=== PATIENT | female | born 1955 | race Asian ===

== ENCOUNTER 2020-10-02 10:38 | Outpatient (CLI) | payer MEDICARE, SELFPAY ==
--- NOTE | ~2020-10-02 | XR_ITS ---
EXAMINATION: XR knee RT min 4V EXAM DATE: 10/02/2020 11:14 INDICATION: No known recent injury provided at this time. Pain of the right knee. TECHNIQUE: Right knee lateral, frontal AP, frontal PA tunnel, sunrise projections. There is no prior study for comparison. FINDINGS: No evidence osteochondral defect or joint body in the right knee joint. No joint effusio n. There is moderate patellofemoral, mild tibiofemoral compartment primary osteoarthritis. There are no acute fractures or dislocations identified. There is no subcutaneous gas. The soft tissue is unr emarkable. There are no radiopaque foreign bodies. IMPRESSION: Right knee osteoarthritis, moderate at patellofemoral compartment. Reviewed, dictated and finalized at location B. ERY PATTERNMAKER
--- NOTE | ~2020-10-02 | XR_ITS ---
EXAMINATION: XR knee LT min 4V EXAM DATE: 10/02/2020 11:14 INDICATION: No known recent injury provided at this time. Pain of the left knee. TECHNIQUE: Left knee lateral, frontal AP, frontal PA tunnel, sunrise projections. Correlation is made to contralateral knee same date. FINDINGS: No evidence osteochondral defect or joint body in the left knee joint. There is moderate patellofemoral, mild tibiofemoral primary osteoarthritis. Small patellar spurs. No joint effusion. T here are no acute fractures or dislocations identified. There is no subcutaneous gas. The soft tiss ue is unremarkable. There are no radiopaque foreign bodies. IMPRESSION: Left knee osteoarthritis, moderate at patellofemoral compartment. Reviewed, dictated and finalized at location B. T CLEANER
== END 2020-10-02 10:39 | disposition home or self-care (01) ==
PROVIDERS: PCP Family Medicine; Visit Provider Family Medicine
DX: M25.561 Pain in right knee (principal); M25.562 Pain in left knee; M17.0 Bilateral primary osteoarthritis of knee
CPT/HCPCS: 73564

== ENCOUNTER 2021-08-09 09:10 | Outpatient (CLI) | payer MEDICARE, SELFPAY ==
--- NOTE | ~2021-08-09 | MM_ITS ---
EXAMINATION: MM screening jose armando BI w mary jo HISTORY: Screening TECHNIQUE: Craniocaudal and mediolateral oblique 3-D tomosynthesis images were obtained and synthetic 2-D images were generated. CAD analysis was submitted and interpreted. COMPARISON: Comparison to multiple prior studies sequentially, with oldest reviewed study dated 10/28. BREAST PARENCHYMAL COMPOSITION: There are scattered areas of fibroglandular density. FINDINGS: There are developing bilateral breast masses in the lower inner quadrant of the left breast and lower inner quadrant of the right breast. There are scattered benign-appearing bilateral breast calcifications. IMPRESSION: 1. Developing bilateral breast masses. 2. Additional mammographic views and possible breast ultrasound are recommended. BI-RADS Category 0: Incomplete: Needs additional imaging evaluation. Reviewed, dictated and finalized at location A. IMPRESSION: 1. Developing bilateral breast masses. 2. Additional mammographic views and possible breast ultrasound are recommended . BI-RADS Category 0: Incomplete: Needs additional imaging evaluation.
--- NOTE | ~2021-08-09 | XR_ITS ---
EXAMINATION: XR knee RT min 4V DATE: 08/09/2021 10:05 INDICATION: Right knee pain TECHNIQUE: Four views of the right knee were obtained. COMPARISON: 10/02/2020 FINDINGS: Alignment is normal. No fracture or osteochondral lesion. There is severe joint space narro wing in the lateral patellofemoral compartment. Mild to moderate joint space narrowing is seen throug hout the remainder of the No joint effusion/synovitis. Soft tissues are unremarkable. IMPRESSION: 1. Tricompartmental osteoarthritis, severe in the lateral patellofemoral compartment. Reviewed, dictated and finalized at location A. IMPRESSION: 1. Tricompartmental osteoarthritis, severe in the lateral patellofemoral compar tment.
== END 2021-08-09 09:11 | disposition home or self-care (01) ==
PROVIDERS: PCP Family Medicine; Visit Provider Family Medicine
DX: Z12.31 Encounter for screening mammogram for malignant neoplasm of breast (principal); M25.561 Pain in right knee; R92.8 Other abnormal and inconclusive findings on diagnostic imaging of breast; M17.11 Unilateral primary osteoarthritis, right knee
CPT/HCPCS: 73564; 77063; 77067

== ENCOUNTER 2021-09-07 11:24 | Outpatient (CLI) | payer MEDICARE, SELFPAY ==
--- NOTE | ~2021-09-07 | MMUS_ITS ---
EXAMINATION: MM diagnostic jose armando BI w mary jo, US breast LT limited HISTORY: Bilateral breast masses. TECHNIQUE: Additional 3-D tomosynthesis images of the breasts were performed and synthetic 2-D images were generated. CAD analysis was submitted and interpreted. High resolution limited left breast ultr asound was performed. COMPARISON: Comparison to multiple prior studies sequentially, with oldest reviewed study dated 10/28. BREAST PARENCHYMAL COMPOSITION: Breast composed of scattered areas of fibroglandular density. FINDINGS: MAMMOGRAPHIC FINDINGS: There is stable focal asymmetries posteriorly in the right breast which are not significantly changed dating back to 09/29/2016 allowing for technique. There are developing masses clustered in the lower central aspect. Both masses appear to contain layering milk of calcium on medial lateral views. ULTRASOUND: Limited left breast ultrasound: At 6:00, 2 cm from the nipple, there is a slightly irregular shaped 1 .6 cm cystic mass with posterior acoustic enhancement and some angular margins. No internal vasculari ty. At 7:00, 2 cm from the nipple, there is an oval hypoechoic mass with parallel orientation measuri ng 1 cm maximum dimension, likely a complicated cyst. At 7:00 near the nipple there is an oval hypoec hoic 3 mm mass, likely complicated cysts. IMPRESSION: 1. Probable benign cystic masses of the left breast. 2. Recommend 6 month follow-up diagnostic left mammogram and ultrasound. BI-RADS category 3, probably benign findings. Reviewed, dictated and finalized at location A. IMPRESSION: 1. Probable benign cystic masses of the left breast. 2. Recommend 6 month follow-up diagnostic left mammogram and ultrasound. BI-RADS category 3, probably benign findings.
== END 2021-09-07 11:25 | disposition home or self-care (01) ==
LOC: ANHIMG 11:25
PROVIDERS: PCP Family Medicine; Visit Provider Family Medicine
DX: R92.8 Other abnormal and inconclusive findings on diagnostic imaging of breast (principal); N60.02 Solitary cyst of left breast; N63.42 Unspecified lump in left breast, subareolar
CPT/HCPCS: 76642; 77062; 77066; G0279

== ENCOUNTER 2022-03-24 13:55 | Outpatient (CLI) | payer MEDICARE, SELFPAY ==
--- NOTE | ~2022-03-24 | MMUS_ITS ---
EXAMINATION: MM diagnostic jose armando LT w mary jo, US breast LT limited HISTORY: Follow-up left breast masses TECHNIQUE: Additional 3-D tomosynthesis images of the left breast were performed and synthetic 2-D im ages were generated. CAD analysis was submitted and interpreted. High resolution Limited left breast ultrasound was performed. COMPARISON: Comparison to multiple prior studies sequentially, with oldest reviewed study dated 01/2016. BREAST PARENCHYMAL COMPOSITION: Breast composed of scattered areas of fibroglandular density FINDINGS: MAMMOGRAPHIC FINDINGS: There are 2 separate masses in the lower inner quadrant of the left breast posteriorly. There are no suspicious calcifications or architectural distortion. ULTRASOUND: Limited left breast ultrasound: Adjacent to one another are 2 separate hypoechoic masses at the 6 and 7:00 position of the left breast, 2 cm from the nipple measuring up to 1.4 and 1.0 cm respectively. Each of these masses has some angular margins with low-level internal echoes and no significant poste rior features. There is parallel orientation. IMPRESSION: 1. Solid masses located at the 6 and 7:00 positions of the left breast. 2. Ultrasound-guided left breast biopsies recommended. BI-RADS category 4, suspicious findings. Reviewed, dictated and finalized at location A. IMPRESSION: 1. Solid masses located at the 6 and 7:00 positions of the left breast. 2. Ultrasound-guided left breast biopsies recommended. BI-RADS category 4, suspicious findings.
== END 2022-03-24 13:56 | disposition home or self-care (01) ==
LOC: ANHIMG 13:56
PROVIDERS: PCP Family Medicine; Visit Provider Family Medicine
DX: N63.25 Unspecified lump in the left breast, overlapping quadrants (principal)
CPT/HCPCS: 76642; 77061; 77065; G0279

== ENCOUNTER 2023-03-27 11:23 | Outpatient (CLI) | payer MEDICARE, SELFPAY ==
--- NOTE | ~2023-03-27 | MMUS_ITS ---
EXAMINATION: MM diagnostic jose armando BI w mary jo, US breast LT limited HISTORY: Follow-up for indeterminate left breast masses for which biopsy was previously recommended. TECHNIQUE: Craniocaudal, mediolateral, and mediolateral oblique 3-D tomosynthesis images of the fran ts were performed and synthetic 2-D images were generated. CAD analysis was submitted and interpreted . High resolution limited left breast ultrasound was performed. COMPARISON: 03/24/2022, 09/07/2021, 08/09/2021 BREAST PARENCHYMAL COMPOSITION: There are scattered areas of fibroglandular density. FINDINGS: MAMMOGRAPHIC FINDINGS: Left breast: There are adjacent masses in the posterior third lower inner left breast which measure 1 2 mm and 8 mm and demonstrate slow decrease in size compared to recent mammograms. There has been no suspicious interval change. Right breast: No suspicious mass, calcification, or architectural distortion are identified to sugges t malignancy. There has been no suspicious interval change. ULTRASOUND: There is a 12 mm x 10 mm oval, circumscribed, parallel, hypoechoic mass with no posterior features or internal vascularity at the 6:00 location 2 cm from the nipple with decrease in size. An 8 mm x 5 mm mass with similar sonographic features is present at the 7:00 location 2 cm from the nipple, also wi th interval decrease in size. IMPRESSION: 1. Left breast masses with decrease in size, consistent with benign findings. 2. Recommend routine screening mammography in one year. BI-RADS Category 2: Benign finding(s). Reviewed, dictated and finalized at location A. IMPRESSION: 1. Left breast masses with decrease in size, consistent with benign findings. 2. Recommend routine screening mammography in one year. BI-RADS Category 2: Benign finding(s).
== END 2023-03-27 11:24 | disposition home or self-care (01) ==
LOC: ANHIMG 11:24
PROVIDERS: PCP Family Medicine; Visit Provider Family Medicine
DX: R92.8 Other abnormal and inconclusive findings on diagnostic imaging of breast (principal)
CPT/HCPCS: 76642; 77062; 77066; G0279

== ENCOUNTER 2025-08-14 10:46 | Outpatient (CLI) | payer MEDICARE, SELFPAY ==
--- NOTE | ~2025-08-14 | MM_ITS ---
EXAMINATION: MM screening jose armando BI w mary jo HISTORY: Screening TECHNIQUE: Craniocaudal and mediolateral oblique 3-D tomosynthesis images were obtained and synthetic 2-D images were generated. CAD analysis was submitted and interpreted. COMPARISON: 03/27/2023 BREAST PARENCHYMAL COMPOSITION: There are scattered areas of fibroglandular density. FINDINGS: There is no evidence of suspicious mass, calcification, or architectural distortion to suggest malignancy. There has been no suspicious interval change. IMPRESSION: 1. No mammographic evidence of malignancy. Recommend routine screening mammography in one year. BI-RADS Category 2: Benign finding(s) Reviewed, dictated and finalized at location Q. IMPRESSION: 1. No mammographic evidence of malignancy. Recommend routine screening mammogra phy in one year. BI-RADS Category 2: Benign finding(s)
--- OUTSIDE RECORDS SUMMARY | 2025-08-14 11:27 | XMS_ITS | Clinical Summary ---
Author Organization [facility] Address [address] [place] [address] Care Team Providers Care Legal Recovery Specialist Name Role Phone Unavailable Primary Care Provider Unavailabl e Allergies No known active allergies Medications cholecalciferol (cholecalciferol ) 400 unit capsule take 1 (400UNITS) by oral route every day 0 0 07/07/2016 Active calcium carbonate (CALCIUM 500) 1,250 MG (500 mg of elemental calcium) tablet 0 0 07/07/2016 Active cholecalciferol (VITAMIN D3) 400 unit capsule take 1 by Oral route every day 0 0 04/05/2016 Active aspirin (ASPIR-81) 81 mg tablet take 1 tablet by oral route every day 0 0 04/05/2016 Active multivitamin-iro n-folic acid (CENTRUM COMPLETE) 18-400 mg-mcg tablet take 1 tablet by oral route every day with food 0 0 04/05/2016 Active atorvastatin (LIPITOR) 40 mg tablet Take 40 mg by mouth daily Active hydroCHLOROthiaz lisa (HYDRODIURIL) 25 mg tablet Take 1 tablet (25 mg total) by mouth daily 90 tablet 02/07/2019 Active magnesium oxide (MAG-OX) 400 mg (241.3 mg elemental magnesium) tablet Take 1 tablet (400 mg total) by mouth daily 60 tablet 4 02/07/2019 Active dilTIAZem (CARDIZEM) 60 mg tablet TAKE 1 TABLET(60 MG) BY MOUTH THREE TIMES DAILY 270 tablet 05/16/2019 Active carvedilol (COREG) 3.125 mg tablet TAKE 1 TABLET(3.12 5 MG) BY MOUTH TWICE DAILY WITH MEALS 180 tablet 05/17/2019 Active losartan (COZAAR) 25 mg tablet TAKE 1 TABLET(25 MG) BY MOUTH DAILY 90 tablet 07/16/2019 Active Active Problems Problem Noted Date Diagnosed Date Sick sinus syndrome 09/29/2016 Overview (03/03/2017): Sick sinus syndrome Paroxysmal atrial fibrillation 04/05/2016 Overview (03/03/2017): PAF (paroxysmal atrial fibrillation) Sleep apnea 11/06/2014 Overview (03/03/2017): Sleep apnea Hypertension 11/06/2014 Overview (03/03/2017): HTN - Hypertension Immunizations Immunization Administration Dates Next Due Influenza, Quadrivalent, Spl it, Preservative Free, Intradermal 08/29/2016 Influenza, Trivalent, Recomb inant, Egg Free, Preservative Free, Antibiotic Free, IM (FLUBLOK) 11/06/2014 Medical History Medical History Date Comments Hx Other Medical sleep apnea; Co mments: ATG 11/06/2014 - Hypertension Hypertension Hx Other Medical DVT; Comments: [facility] 03/22/2016 - Hx Other Medical peripheral neur opathy; Comments: [facility] 03/22/2016 - Family History Medical History Relation Name Comments Hypertension Father 2 Hypertension; C ause of : Hypertension Diabetes type II Mother 2 Diabetes me llitus type 2; Cause of : Diabetes mellitus type 2 Relation Name Status Comments Father 1 Father 2 Mother 1 Mother 2 Social History Tobacco Use Types Packs/Day Years Used Date Smoking Tobacco: Never Alcohol Use Standard Drinks/Week Comments No 0 (1 standard drink = 0.6 oz pur e alcohol) Comments Unknown Sex and Gender Information Value Date Recorded Sex Assigned at Not on file Legal Sex Female 8:29 PM [employer] Gender Identity Not on file Sexual Orientation Not on file Obstetrics History Last Filed Vital Signs Vital Sign Reading Time Taken Comments Blood Pressure 144/78 02/07/2019 9:23 AM CDT Pulse 72 02/07/2019 9:23 AM CDT Temperature 36.8 C (98.3 F) 02/07/2019 9:23 AM CDT Respiratory Rate 16 02/07/2019 9:23 AM CDT Oxygen Saturation 98% 01/30/2017 2:49 PM [employer] Inhaled Oxygen Concentration - - Weight 93 kg (205 lb) 02/07/2019 9:23 AM CDT Height 165.1 cm (5' 5) 02/07/2019 9:23 AM CDT Body Mass Index 34.11 02/07/2019 9:23 AM CDT Plan of Treatment Not on file Insurance [facility] MDCR HMO REF
== END 2025-08-14 10:47 | disposition home or self-care (01) ==
PROVIDERS: PCP Internal Medicine; Visit Provider Internal Medicine
DX: Z12.31 Encounter for screening mammogram for malignant neoplasm of breast (principal)
CPT/HCPCS: 77063; 77067

== ENCOUNTER 2025-09-11 15:10 | Outpatient (CLI) | payer MEDICARE, SELFPAY ==
--- NOTE | ~2025-09-11 | DEXA_ITS ---
Bone Density Report Name: ROSALIND PEDROZA Age: 69 Sex: Female Ethnicity: White Date of : 1955 Indication: postmenopausal; screening for osteoporosis; height loss; Referring Provider: RAPHAEL, TASHI Mercado Study: Bone densitometry was performed. Exam Date: September 11, 2025 Accession number: [id number] Bone Density: Region BMD T-score Z-score Classification AP Spine(L1-L4) 1.092 0.4 2.6 Normal Femoral Neck (Left) 0.830 -0.2 1.7 Normal Total Hip (Left) 0.895 -0.4 1.2 Normal Femoral Neck (Right) 0.962 1.0 2.9 Normal Total Hip (Right) 0.861 -0.7 0.9 Normal Total Hip Mean 0.878 -0.6 1.1 Normal World Health Organization criteria for BMD impression classify patients as: Normal (T-score at or above -1.0), Osteopenia (T-score between -1.0 and -2.5), or Osteoporosis (T-score at or below -2.5). 10-year Fracture Risk: FRAX not reported because: All T-scores for Spine Total, Hip Total, Femoral Neck at or above -1.0 Clinical Information Provided by Patient: Has used the following medications: Vitamin D, Calcium Patient maximum height was 65 Menopause Age: 52 No regular weight bearing exercise Drinks caffeinated beverages Onset of menses at age 12 Number of children 5 Impression: The patient has normal bone mass. Discussion: BONE DENSITY IS ABOVE THE MINIMUM DESIRABLE LEVEL AT ALL SKELETAL SITES TESTED. This patient?s bone mineral density is above the minimum desirable level (T-score -1.0 or better) at all sites measured. The patient should follow a healthful lifestyle (good nutrition with adequate calcium and vitamin D, and appropriate weight-bearing exercise). Follow-Up: Consider repeating this study in 5 years or sooner if there is some new clinical indication. Reported by: HARDEEP on 09/11/2025 3:49:00 PM. Reviewed, dictated and finalized at location A.
== END 2025-09-11 15:11 | disposition home or self-care (01) ==
PROVIDERS: PCP Internal Medicine; Visit Provider Internal Medicine
DX: Z78.0 Asymptomatic menopausal state (principal)
CPT/HCPCS: 77080

== ENCOUNTER 2025-09-14 18:31 | Emergency (ER) | payer MEDICARE, SELFPAY ==
[2025-09-14 18:40] VITALS: BP 149/74; PULSE 80; RESP 16; TEMP 36.3; O2SAT 100
--- NOTE | 2025-09-14 18:54 | ED_ITS ---
HPI - Nausea/Vomiting/Diarrhea General Chief complaint: Nausea/Vomiting/Diarrhea Stated complaint: Diarrhea, weak, drowsy, sleeping long hours Time Seen by Provider: 09/14/25 18:35 Source: patient Mode of arrival: ambulatory Limitations: no limitations History of Present Illness HPI Narrative: Patient is a 69-year-old female who presents with diarrhea for 1 week. Patient states last 2 days has been solid again. However since diarrhea started patient has not eaten much and only been drinking water. Patient has had increase fatigue and generalized weakness. Denies any fever, chills, nausea, vomiting. Patient has been taking Imodium, pantoprazole, Tums, famotidine and probiotic Related Data Allergies Allergy/AdvReac Type Severity Reaction Status Date / Time No Known Allergies Allergy Unknown Verified 09/14/25 18:37 Review of Systems Review of Systems: All systems reviewed & are unremarkable except as noted in HPI and below Constitutional: Constitutional: Denies body ache(s), Denies chills, Reports fatigue, Denies fever(s), Denies headache(s), Denies malaise and Denies weakness Eyes: Eyes: Denies blurry vision, Denies irritation and Denies loss of vision ENT: Denies otalgia, Denies headache(s), Denies nasal discharge, Denies sinus pain and Denies sore throat Cardiovascular: Cardiovascular: Denies chest pain, Denies irregular heart rhythm and Denies dyspnea Respiratory: Respiratory: Denies dyspnea Gastrointestinal: Gastrointestinal: Denies abdominal pain, Denies melena, Denies hematochezia, Reports diarrhea, Denies nausea and Denies vomiting Musculoskeletal: Musculoskeletal: Denies back pain, Denies myalgias and Denies arthralgias Integumentary/Breasts: Skin/Breast: Denies pruritus and Denies rash Neurologic: Denies headache(s), Denies loss of vision and Denies weakness Psychiatric: Psychiatric: Reports no additional psychiatric complaints Endocrine: Endocrine: Denies fatigue PMFSH Family History Family History Sibling Hypertension Social History Social History Smoking status: Never smoker Alcohol intake: never Comments At time of signature, agree with nursing past medical, surgical, social and fam federico history. There is no relevant family history pertinent to the presenting complaint. Exam Const: General: cooperative, healthy appearing, comfortable, no acute distress and well nourished Nutritional Appearance: well nourished Orientation/consciousness: patient oriented x3 Limitations: no limitations HENMT: Head: normal to inspection, normocephalic and atraumatic Ears: hearing grossly normal bilaterally and external ears normal Face/Nose/Sinus: Normal external nose present, normal facial exam and face symmetric Face and sinus: normal facial exam and face symmetric Mouth: Yes lip normal Eyes: General: appearance normal, both eyes and all related structures Alignment and Position: alignment normal and position normal Periorbital: periorbital findings normal Eyelids: eyelids normal Pupils: Equal, round and reactive pupils present EOM: EOMs intact bilaterally Neck: Neck: normal visual inspection, full ROM and supple Chest: Chest palpation & inspection: normal inspection of the chest Resp: Effort & Inspection: normal respiratory effort and able to speak in complete sentences Auscultation: clear to auscultation bilaterally Cardio: Rate: regular rate Rhythm: regular rhythm Heart sounds: S1 normal heart sound present and S2 normal heart sound present GI: Inspection: normal to inspection GI Palp: No abdominal tenderness Skin: General skin exam: normal color and no rashes or lesions noted Neuro: General: patient oriented x3 and moves all extremities Cranial nerves: Yes Equal, round and reactive pupils present Speech: normal speech Gait exam (Neuro): Normal gait present Extrem: General: normal to inspection, full ROM and no edema Psych: Appearance: grossly normal and well kempt Mental Status: mental status grossly normal Speech and movement: Normal speech and movement present Affect: normal affect Attitude: cooperative Thought process: Normal thought process present Course Course Emergency Course: Patient is aware of diagnosis, understands and agrees to treatment plan. Anticipatory guidance given. Patient agrees to follow-up as directed and is aware of reasons to seek care at the emergency department. Portions of this record may have been created with voice recognition software Level of Care: Express Care Visit Vital Signs Vital signs: Vital Signs Temperature 36.3 C L 09/14/25 18:40 Pulse Rate 80 09/14/25 18:40 Respiratory Rate 16 09/14/25 18:40 Blood Pressure 149/74 H 09/14/25 18:40 Pulse Oximetry 100 09/14/25 18:40 Oxygen Delivery Room Air 09/14/25 18:40 Temperature 36.3 C L 09/14/25 18:40 Pulse Rate 80 09/14/25 18:40 Respiratory Rate 16 09/14/25 18:40 Blood Pressure 149/74 H 09/14/25 18:40 Pulse Oximetry 100 09/14/25 18:40 Oxygen Delivery Room Air 09/14/25 18:40 Reviewed MDM - Nausea/Vomiting/Diarrhea MDM Narrative Medical decision making narrative: Family member was hoping for IV fluids for dehydration. Explained the limitations of this urgent care and that fluids are not given. Discussed transfer to emergency department. Patient and family member declined stating they will push fluids with electrolytes. Pt well hydrated appearing, in no respiratory distress, hemodynamically stable. Recommend supportive care. The patient is stable at time of discharge the clinical impression was discussed and the patient was given the opportunity to ask questions, which were addressed as completely as possible given the information available at present. Anticipatory guidance and return to care prec autions were discussed and the importance of primary care follow-up was stressed and encouraged. The patient voiced understanding of the plan, indications to return, and the need for follow-up. Exam findings show no acute concerns or changes Patient is appropriate for outpatient treatment and follow-up. Differential Diagnosis Differential diagnosis: Likely food poisoning and gastroenteritis Discharge Plan Discharge Clinical Impression: Gastroenteritis Patient Disposition: Home Condition: Stable Instructions: Gastroenteritis (ED) Additional Instructions: Stay hydrated. Take small sips of fluid containing electrolytes frequently(Body Ackworth lite, Gatorade Zero). Eat small meals that her very bland including bananas, applesauce, rice, toast, boiled or grilled chicken, soup. Do not eat anything fried, spicy or overly acidic. You should go to the hospital if you experience return of persistent nausea and vomiting that does not resolve and does not allow you to tolerate any food or fluids, persistent fevers for greater than 2-3 more days, increasing abdominal pain that persists despite medications, persistent diarrhea, dizziness, syncope (fainting), or for any other concerns. Patient Language: Other Follow-up/Referrals: Irina,Jacques Mercado MD [Primary Care Provider, Unknown] - 3 Days Time of Disposition: 18:55
== END 2025-09-14 19:02 | disposition home or self-care (01) ==
PROVIDERS: Emergency Provider Nurse Practitioner Family; PCP Internal Medicine
DX: K52.9 Noninfective gastroenteritis and colitis, unspecified (principal); I10 Essential (primary) hypertension; E11.9 Type 2 diabetes mellitus without complications; E78.00 Pure hypercholesterolemia, unspecified; Z95.0 Presence of cardiac pacemaker
CPT/HCPCS: 99211; G0463